=== PATIENT | male | born 1970 | race Caucasian/White ===

== ENCOUNTER 2024-01-18 09:04 | Emergency (ER) | payer OTHER ==
[2024-01-18] VITALS (9 sets, daily range): BP systolic 131–174; BP diastolic 92–112
[~2024-01-18] VITALS: Ht 170.2 cm; Wt 113.4 kg
[2024-01-18 10:26] LABS: POTASSIUM 3.3 mmol/l (3.5-5.1)
[2024-01-18 10:30] LABS: INTERNATIONAL NORMALIZED RATIO 1.2 RATIO (0.7-1.3)
[2024-01-18 10:31] LABS: PROTHROMBIN TIME 10.9 SECONDS (9.0-12.5)
[2024-01-18 10:33] LABS: BASO% 0.3 % (0-3); EOS% 0.9 % (0-8); HEMATOCRIT 37.6 % (39.0-50.0); HEMOGLOBIN 13.4 g/dl (14.0-18.0); IMMATURE GRANULOCYTES 0.2 % (0.0-5.0); LYMPH% 11.1 % (15-41); MEAN CELL VOLUME 86.2 fL CALC (80.0-100.0); MEAN CORPUSCULAR HGB 30.7 pG CALC (26.0-32.0); MEAN CORPUSCULAR HGB CONC 35.6 g/dL CAL (32.0-36.0); MONO% 7.6 % (2-13); NEUT# 9.61 thou/uL (1.82-7.42); NEUT% 79.9 % (42-76); RED BLOOD COUNT 4.36 mill/uL (4.70-6.10); RED CELL DISTRI WIDTH 12.9 % (11.5-15.5)
[2024-01-18] MEDS ORDERED: METHOCARBAMOL500 MG PO (11:29)
== END 2024-01-18 12:20 | disposition home or self-care (01) | DRG 605 ==
LOC: ED 09:04
PROVIDERS: Family Medicine
DX: S01.01XA Laceration without foreign body of scalp, initial encounter (principal); T14.8XXA Other injury of unspecified body region, initial encounter; I10 Essential (primary) hypertension; F17.210 Nicotine dependence, cigarettes, uncomplicated; F17.290 Nicotine dependence, other tobacco product, uncomplicated; V47.6XXA Car passenger injured in collision with fixed or stationary object in traffic accident, initial encounter